=== PATIENT | female | born 1940 | race Caucasian/White ===

== ENCOUNTER 2019-11-19 12:37 | Emergency (ER) | payer OTHER ==
[~2019-11-19] VITALS: Ht 165.1 cm; Wt 113.4 kg
[2019-11-19 14:09] LABS: BILIRUBIN,URINE NEGATIVE (NEGATIVE); CLARITY,URINE CLEAR (CLEAR); COLOR,URINE YELLOW (YELLOW); KETONES,URINE NEGATIVE (NEGATIVE); LEUKOCYTE ESTERASE ,URINE TRACE (NEGATIVE); NITRITE,URINE NEGATIVE (NEGATIVE); PROTEIN,URINE DIPSTICK NEGATIVE (NEGATIVE); URINE UROBILINOGEN 0.2 mg/dL (0.2 - 1)
[2019-11-19 14:20] LABS: BACTERIA,URINE MODERATE /HPF; EPITHELIAL CELLS,URINE FEW /LPF; HYALINE CASTS 0-1 (0-1); WBC,URINE (MAN) 0-5 /HPF (0-5)
--- NOTE | 2019-11-19 14:36 | Diagnostic Imaging Report ---
TECHNIQUE: Computed tomography imaging of the LEFT HIP was performed WITHOUT injected contrast. HISTORY: Pain COMPARISON: None available. FINDINGS: No displaced left hip fracture. No lytic or blastic lesion. Mild degenerative arthrosis of the left hip with labral calcification. Atrophy of the left gluteal musculature. No fluid collections or soft tissue masses. Scattered diverticulosis without inflammatory change. IMPRESSION: No displaced fracture Signed by: Dr. Alberto Gray M.D. on 11/19/2019 2:32 PM
--- OUTSIDE RECORDS SUMMARY | 2019-11-19 14:52 | XMS REPORT | Clinical Summary ---
Author Author [facility] Address Unknown Phone Unavailable Care Team Providers Care Waste Duster Name Role Phone Duglas Bernal MD PCP [phone] Allergies No Known Allergies Medications End Date Status Medication Sig Dispensed Refills Start Date Active metoprolol (TOPROL-XL) 50 Take 50 mg by 0 MG 24 hr tablet mouth daily. Active amLODIPine (NORVASC) 5 MG Take 5 mg by 0 tablet mouth daily. Active CALCIUM CARBONATE/VITAMIN Take by mouth 0 D3 (CALCIUM 600 + D,3, daily . ORAL) Active FLUTICASONE PROPIONATE by Nasal 0 (FLUTICASONE NASL) route as needed . Active multivitamin per tablet Take 1 tablet 0 by mouth daily. Active buPROPion (WELLBUTRIN SR) Take 150 mg 0 150 MG 12 hr tablet by mouth 2 (two) times daily. Active celecoxib (CELEBREX) 100 Take 100 mg 0 MG capsule by mouth 2 (two) times daily . Active albuterol HFA (VENTOLIN Inhale 1 puff 0 HFA) 90 mcg/actuation by mouth via inhaler inhaler every 6 (six) hours as needed for Wheezing or Shortness of Breath. Active anastrozole (ARIMIDEX) 1 Take 1 mg by 0 mg tablet mouth daily. Active gabapentin (NEURONTIN) Take 400 mg 0 400 MG capsule by mouth 3 (three) times daily. Active lidocaine (LIDODERM) 5 % Place 1 patch 0 patch onto the skin daily Remove & Discard patch within 12 hours or as directed by MD . Active heparin injection 5,000 Inject 1 mL 1 mL 0 03 /01/201 units/mL for DVT (5,000 Units 7 prophylaxis/dialysis total) lock/IV bolus subcutaneousl y every 8 (eight) hours. Active polyethylene glycol Take 17 g by 0 (GLYCOLAX) 17 gram packet mouth daily 7 as needed (for constipation) . Active HYDROcodone-acetaminophen Take 1 tablet 30 tablet 0 (NORCO 5-325) 5-325 mg by mouth 7 per tablet every 6 (six) hours as needed for Pain (for moderate to severe pain). Max Daily Amount: 4 tablets Active Problems Problem Noted Date Chronic Open abdominal wall wound 04/06/2016 Acute on chronic low back pain with bilateral sciatic a 04/06/2016 History of breast cancer in female 04/06/2016 Paraparesis of both lower limbs 04/05/2016 INESSA (acute kidney injury) (HCC) resolved 04/05/2016 Essential hypertension 04/05/2016 Morbid obesity with BMI of 40.0-44.9, adult 04/05/19 17 Lymphedema of both lower extremities 04/05/2016 Peripheral neuropathy 04/05/2016 Depression 04/05/2016 Family History Medical History Relation Name Comments Diabetes Brother Heart disease Brother Diabetes Mother Heart disease Mother Relation Name Status Comments Brother Mother Social History Date Tobacco Use Types Packs/Day Years Used Never Smoker Drinks/Week oz/Week Comments Alcohol Use No Sex Assigned at Date Recorded Not on file Last Filed Vital Signs Not on file Plan of Treatment Not on file Results Not on fileafter 11/18/2018 Insurance Type Payer Benefit Subscriber ID Effective Phone Address Plan / Dates Group Maps Contracted TEXANPLUS TEXANPLUS [id number] 2013-P HMO ALL resent Advance Directives For more information, please contact: [phone] Date Inactivated Comments Code Status Date Activated 04/07/2016 8:38 PM Full Code 04/05/2016 7:39 PM This code status was determined by: Patient 01/16/2015 1:44 PM Full Code 01/14/2015 11:37 AM This code status was determined by: Patient 09/28/2014 3:43 PM Full Code 09/27/2014 9:24 AM This code status was determined by: Patient
--- OUTSIDE RECORDS SUMMARY | 2019-11-19 14:52 | XMS REPORT | Continuity of Care Document ---
Author Author [facility] Organization [facility] Address [address] [place] [address] Phone Unavailable Care Team Providers Care Dental Laboratory Technology Teacher Name Role Phone Dolores MEDINA, Juanpablo Ardon PCP [phone] Ahsan STROUD Attphys Unavailable SERGE CLARKE Attphys Unavailable Trey MCARTHUR Admphys Unavailable Problems Condition Name Condition Details Condition Category Status Onset Date Resolution Date Last Treatment Date Treating Clinician Comments Source Chronic Open abdominal wall wound Chronic Open abdominal wall wo und Disease Active 2016-04-06 00:00:00 [facility] Acute on chronic low back pain with bilateral sciatica Acute on chronic low back pain with bilateral sciatica Disease Active 2016-04-06 00:00:00 [facility] History of breast cancer in female History of breast cancer in f emale Disease Active 2016-04-06 00:00:00 [facility] Paraparesis of both lower limbs Paraparesis of both lower limbs Dis ease Active 2016-04-05 00:00:00 [facility] INESSA (acute kidney injury) (HCC) resolved INESSA (acute ki dney injury) (HCC) resolved Disease Active 2016-04-05 00:00:00 [facility] Essential hypertension Essential hypertension Disease Active 2016-04-05 00:00:00 [facility] Morbid obesity with BMI of 40.0-44.9, adult Morbid obe sity with BMI of 40.0- 44.9, adult Disease Active 2016-04-05 00:00:00 [facility] Lymphedema of both lower extremities Lymphedema of both lowe r extremities Disease Active 2016-04-05 00:00:00 [facility] Peripheral neuropathy Peripheral neuropathy Disease Active 201 08-08-26 00:00:00 [facility] Depression Depression Disease Active 2016-04-05 00:00:00 [facility] Allergies, Adverse Reactions, Alerts This patient has no known allergies or adverse reactions. Family History Family Member Diagnosis Comments Start Date Stop Date Source Natural brother Diabetes [facility] Natural brother Heart disease [facility] Natural mother Diabetes [facility] Natural mother Heart disease [facility] Social History Social Habit Start Date Stop Date Quantity Comments Source Sex Assigned At [facility] Alcohol intake 2016-04-05 00:00:00 2016-04-05 00:00:00 [facility] Sm[facility] Status Start Date Stop Date Source Never smoker [facility] Medications Ordered Medication Name Filled Medication Name Start Date Stop Da te Current Medication? Ordering Clinician Indication Dosage Frequency Signature (SIG) Comments Components Source metoprolol (TOPROL-XL) 50 MG 24 hr tablet 2016-04-07 18:38:31 Yes 50mg QD Take 50 mg by mouth daily. [facility] multivitamin per tablet 2016-04-07 18:38:31 Yes 1{tbl} QD Take 1 tablet by mouth daily. [facility] gabapentin (NEURONTIN) 400 MG capsule 2016-04-07 18:38:31 Yes 400mg [id number] Take 400 mg by mouth 3 (three) times daily. [facility] lidocaine (LIDODERM) 5 % patch 2016-04-07 18:38:31 Yes 1{patch} Q24H Place 1 patch onto the skin daily Remove & Discard patch within 12 hours or as directed by . [facility] amLODIPine (NORVASC) 5 MG tablet 2016-04-07 18:38:30 Yes 5mg QD Take 5 mg by mouth daily. [facility] CALCIUM CARBONATE/VITAMIN D3 (CALCIUM 600 + D,3, ORAL) 2016-04-07 18:38:30 Yes QD Take by mouth daily . I [facility] FLUTICASONE PROPIONATE (FLUTICASONE NASL) 2016-04-07 18:38:30 Yes by Nasal route as needed . [facility] buPROPion (WELLBUTRIN SR) 150 MG 12 hr tablet 2016-04-07 18:38:3 0 Yes 150mg Q.5D Take 150 mg by mouth 2 (two) times daily. [facility] celecoxib (CELEBREX) 100 MG capsule 2016-04-07 18:38:30 Yes 100mg Q.5D Take 100 mg by mouth 2 (two) times daily . [facility] albuterol HFA (VENTOLIN HFA) 90 mcg/actuation inhaler 2016-04-07 18:38:30 Yes 1{puff} Inhale 1 puff b y mouth via inhaler every 6 (six) hours as needed for Wheezing or Shortness of Breath. [facility] anastrozole (ARIMIDEX) 1 mg tablet 2016-04-07 18:38:30 Yes 1mg QD Take 1 mg by mouth daily. [facility] heparin injection 5,000 units/mL for DVT prophylaxis/dialysi s lock/IV bolus 2016-04-07 00:00:00 Yes 5000U Inject 1 mL (5,000 Units total) subcutaneously every 8 (eight) hours. I [facility] polyethylene glycol (GLYCOLAX) 17 gram packet 2016-04-07 00:00:0 0 Yes 17g Take 17 g by mouth daily as needed (for constipation). [facility] HYDROcodone-acetaminophen (NORCO 5-325) 5-325 mg per tablet 2016-04-07 00:00:00 Yes 1{tbl} Take 1 tab let by mouth every 6 (six) hours as needed for Pain (for moderate to severe pain). Max Daily Amount: [address] [facility] Procedures This patient has no known procedures. Results Test Description Test Time Test Comments Results Result Comments Source CT HIP LEFT WO 2019-11-19 14:28:00 [facility] [address] [address] Patient Name: SAUL XIONG MR #: [id number] : 1940 Age/Sex: 79/F Req #: [id number] Adm Physician: Ordered by: ASIM STROUD DO Report #: [id number] Location: ER Room/Bed: Procedure: [id number] CT/CT HIP LEFT WO Exam Date: 11/19/19 Exam Time: 1400 REPORT STATUS: Signed TECHNIQUE: Computed tomography imaging of the LEFT HIP was performed WITHOUT injected contrast. HISTORY: Pain COMPARISON: None available. FINDINGS: No displaced left hip fracture. No lytic or blastic lesion. Mild degenerative arthrosis of the left hip with labral calcification. Atrophy of the left gluteal musculature. No fluid collections or soft tissue masses. Scattered diverticulosis without inflammatory change. IMPRESSION: No displaced fracture Signed by: Dr. Renuka Santos M.D. on 11/19/2019 2:32 PM Dictated By: RENUKA SANTOS MD 143 Transcribed By: TIAGO on 11/19/19 143 COPY TO: ASIM STROUD DO POCT-GLUCOSE METER 2016-04-06 18:03:00 Test Item POC-GLUCOSE METER (BEAKER) (test code = 1538) 115 mg/dL 70-110 H TESTED AT [address] [address] POCT-GLUCOSE [id number] 12:27:00* Test Item Value Reference Range Interpretation Comments POC-GLUCOSE METER (BEAKER) (test code = 1538) 110 mg/dL 70-110 TESTED AT [address] [address] POCT-GLUCOSE [id number] 07:57:00* Test Item Value Reference Range Interpretation Comments POC-GLUCOSE METER (BEAKER) (test code = 1538) 91 mg/dL 70-110 TESTED AT [facility] [address] [facility] [address] BASIC METABOLIC [id number] 07:42:00* Test Item Value Reference Range Interpretation Comments SODIUM (BEAKER) (test code = 381) 139 meq/L 136-145 POTASSIUM (BEAKER) (test code = 379) 4.3 meq/L 3.5-5.1 Specimen slightly hemolyzed CHLORIDE (BEAKER) (test code = 382) 109 meq/L 98-107 H CO2 (BEAKER) (test code = 355) 21 meq/L 22-29 L BLOOD UREA NITROGEN (BEAKER) (test code = 354) 27 mg/dL 7-21 H CREATININE (BEAKER) (test code = 358) 1.02 mg/dL 0.57-1.25 Specimen slightly hemolyzed GLUCOSE RANDOM (BEAKER) (test code = 652) 93 mg/dL 70-105 CALCIUM (BEAKER) (test code = 697) 9.0 mg/dL 8.4-10.2 EGFR (BEAKER) (test code = 1092) 53 mL/min/1.73 sq m ESTIMATED GFR IS NOT ACCURATE CREATININE CLEARANCE IN PREDICTING GLOMERULAR FILTRATION RATE. ESTIMATED GFR IS NOT APPLICABLE FOR DIALYSIS PATIENTS. TSH/FREE T4 IF [id number] 18:15:00* Test Item Value Reference Range Interpretation Comments THYROID STIMULATING HORMONE (BEAKER) (test code = 772) 1.71 uIU/mL 0.35-4.94 BASIC METABOLIC [id number] 18:01:00* Test Item Value Reference Range Interpretation Comments SODIUM (BEAKER) (test code = 381) 139 meq/L 136-145 POTASSIUM (BEAKER) (test code = 379) 4.9 meq/L 3.5-5.1 Specimen slightly hemolyzed CHLORIDE (BEAKER) (test code = 382) 106 meq/L 98-107 CO2 (BEAKER) (test code = 355) 23 meq/L 22-29 BLOOD UREA NITROGEN (BEAKER) (test code = 354) 24 mg/dL 7-21 H CREATININE (BEAKER) (test code = 358) 1.42 mg/dL 0.57-1.25 H Specimen slightly hemolyzed GLUCOSE RANDOM (BEAKER) (test code = 652) 114 mg/dL 70-105 H CALCIUM (BEAKER) (test code = 697) 9.5 mg/dL 8.4-10.2 EGFR (BEAKER) (test code = 1092) 36 mL/min/1.73 sq m ESTIMATED GFR IS NOT ACCURATE CREATININE CLEARANCE IN PREDICTING GLOMERULAR FILTRATION RATE. ESTIMATED GFR IS NOT APPLICABLE FOR DIALYSIS PATIENTS. TROPONIN [id number] 16:58:00* Test Item Value Reference Range Interpretation Comments TROPONIN I (BEAKER) (test code = 397) 0.01 ng/mL 0.00-0.03 Effective 12/25/2013: Reference Range ChangeNew: 0.00-0.03 Previous 0.00-0.15T roponin I (TnI) levels must be interpreted in the context of the presenting symp toms and the clinical findings. Elevated TnI levels indicate myocardial damage, but are not specific for ischemic heart disease. Elevated TnI levels are seen in patients with other cardiac conditions (including myocarditis and congestive he art failure), and slight TnI elevations occur in patients with other conditions, including sepsis, renal failure, acidosis, acute neurological disease, and pers istent tachyarrhythmia.CBC W/PLT COUNT & AUTO [id number] 16:31:00* Test Item Value Reference Range Interpretation Comments WHITE BLOOD CELL COUNT (BEAKER) (test code = 775) 7.4 K/ L 4.0- 10.0 RED BLOOD CELL COUNT (BEAKER) (test code = 761) 4.40 M/ L 4.00-5 .00 HEMOGLOBIN (BEAKER) (test code = 410) 14.3 GM/DL 12.0-15.0 HEMATOCRIT (BEAKER) (test code = 411) 42.9 % 36.0-45.0 MEAN CORPUSCULAR VOLUME (BEAKER) (test code = 753) 97.5 fL 82. 0-99.0 MEAN CORPUSCULAR HEMOGLOBIN (BEAKER) (test code = 751) 32.4 pg 27.0-33.0 MEAN CORPUSCULAR HEMOGLOBIN CONC (BEAKER) (test code = 752) 33.3 GM/DL 32.0-36.0 RED CELL DISTRIBUTION WIDTH (BEAKER) (test code = 412) 13.2 % 10.3-14.2 PLATELET COUNT (BEAKER) (test code = 756) 203 K/CU MM 150-430 MEAN PLATELET VOLUME (BEAKER) (test code = 754) 8.5 fL 6.5-10 .5 NUCLEATED RED BLOOD CELLS (BEAKER) (test code = 413) 0 /100 WBC 0 -0 NEUTROPHILS RELATIVE PERCENT (BEAKER) (test code = 429) 78 % LYMPHOCYTES RELATIVE PERCENT (BEAKER) (test code = 430) 10 % MONOCYTES RELATIVE PERCENT (BEAKER) (test code = 431) 10 % EOSINOPHILS RELATIVE PERCENT (BEAKER) (test code = 432) 1 % BASOPHILS RELATIVE PERCENT (BEAKER) (test code = 437) 1 % NEUTROPHILS ABSOLUTE COUNT (BEAKER) (test code = 670) 5.78 K/ L 1.80-8.00 LYMPHOCYTES ABSOLUTE COUNT (BEAKER) (test code = 414) 0.74 K/ L 1.48-4.50 L MONOCYTES ABSOLUTE COUNT (BEAKER) (test code = 415) 0.72 K/ L 0. 00-1.30 EOSINOPHILS ABSOLUTE COUNT (BEAKER) (test code = 416) 0.10 K/ L 0.00-0.50 BASOPHILS ABSOLUTE COUNT (BEAKER) (test code = 417) 0.08 K/ L 0. 00-0.20 0.00
--- NOTE | 2019-11-19 15:26 | Diagnostic Imaging Report ---
EXAMINATION: CT of the lumbar spine HISTORY: Low back pain for the last few days COMPARISON: None available TECHNIQUE: Multidetector helical axial images were obtained about contrast from L1 to S1. Dose modulation, iterative reconstruction, and/or weight based adjustment of the mA/kV was utilized to reduce the radiation dose to as low as reasonably achievable. FINDINGS: Alignment: Grade 2 spondylolisthesis of L4 on L5 due to advanced facet arthrosis. Normal lumbar lordosis otherwise. Mild S-shaped scoliosis with dominant dextroscoliosis centered at L3-L4. Vertebral bodies: No acute fractures. Chronic endplate degenerative changes from L2 to S1. Interbody fusion at L5-S1. Paraspinal muscles: Moderate atrophy of the paraspinal muscles. Lower thoracic spine: Mild degenerative changes from T9-T10, T10-T11 and T11-T12 without significant stenoses. Intervertebral disks: L1-L2: Normal L2-L3: Decreased disc height, endplate osteophytes and facet arthrosis. Moderate right and mild left foraminal stenoses. L3-L4: Decreased disc height, similar to disc bulge, vacuum phenomena, endplate osteophytes, ligamentum flavum thickening and facet arthrosis. Severe spinal canal and moderately severe foraminal stenosis. L4-L5: Decreased disc height, symmetric disc bulge, vacuum phenomena, endplate osteophytes, ligamenta flava thickening and severe facet arthrosis. Severe spinal canal and moderate foraminal stenoses mainly on the right side. L5-S1: Solid interbody and posterior fusion. No stenoses. IMPRESSION: 1. No acute displaced fractures. 2. Grade 2 degenerative spondylolisthesis of L4 on L5 due to advanced facet arthrosis. 3. Severe degenerative spinal canal stenosis at L3-L4 and L4-L5. 4. Moderate to severe degenerative foraminal stenosis from L3-L4 to L4-L5 as the tail above. 5. Solid interbody and posterior fusion at L5-S1. Signed by: Dr. Juana Herr M.D. on 11/19/2019 3:23 PM
[2019-11-19] MEDS ORDERED: HYDROCODONE/APAP 7.5MG-325MG 1 EA TAB PO PRN (15:30)
[2019-11-19] MEDS ORDERED: DIAZEPAM 2 MG TAB PO ONE (15:30)
[2019-11-19] MEDS ORDERED: METHYLPREDNISOLONE SOD SUCC 125 MG/2ML VIAL IV ONE (16:00)
[2019-11-19] MEDS ORDERED: ULTRAM50 MG PO (16:16)
--- NOTE | 2019-11-25 09:25 | Emergency Department Note ---
History of Present Illnes History of Present Illness Chief Complaint: Back Pain History of Present Illness This is a 79 year old female arrived to the ED with atraumatic lower back pain patient states pain is worse when bending forward. Patient denies any dysuria hematuria no fever no chills. Patient denies any numbness to her extremities. . . .PATIENT IN FROM HOME WITH COMPLAINTS OF LEFT LOWER BACK AND LEG PAIN X 4 DAYS; DENIES ANY FALL OR INJURY; PATIENT STATES IT STARTED APPROX 4 DAYS AGO AFTER DOING LAUNDRY AND OTHER ACTIVITIES. PATIENT RATES PAIN 11/16 Historian: Patient, Hand Clipper/EMS Arrival Mode: [place] Onset (how long ago): day(s) Severity: mild Onset quality: gradual Duration (how long): day(s) Timing of current episode: constant Progression: waxing and waning Context: Denies recent illness, Denies recent surgery, Denies recent immobilization, Denies trauma/injury Relieving factors: none Exacerbating factors: none Past Medical/Family History Physician Review I have reviewed the patient's past medical and family history. Any updates have been documented here. Past Medical History Recent Fever: No Clinical Suspicion of Infectio: No New/Unexplained Change in Ment: No Past Medical History: Hypertension, Cancer, Hyperlipedemia Other Medical History: BILATERAL BREAST CANCER Past Surgical History: Knee Replacement, Mastectomy Other Surgery: LUMBAR FUSION Social History Smoking Cessation: Never Smoker Counseling Performed: No Alcohol Use: None Any Illegal Drug Use: No Physically hurt or threatened: No Other Any Pre-Existing Lines (PICC,: No Review of Systems Review of Systems Constitutional: Reports no symptoms EENTM: Reports no symptoms Cardiovascular: Reports no symptoms Respiratory: Reports no symptoms Gastrointestinal: Reports no symptoms Genitourinary: Reports no symptoms Musculoskeletal: Reports as per HPI, Reports back pain Integumentary: Reports no symptoms Neurological: Reports no symptoms Psychological: Reports no symptoms Endocrine: Reports no symptoms Hematological/Lymphatic: Reports no symptoms Physical Exam Related Data Allergies: Coded Allergies: No Known Allergies (Unverified , 11/19/19) Triage Vital Signs Vital Signs Date Time Temp Pulse Resp B/P (MAP) Pulse Ox O2 Delivery O2 Flow Rate FiO2 11/19/19 12:57 98.6 58 18 153/62 96 Room Air Vital signs reviewed: Yes Physical Exam CONSTITUTIONAL Constitutional: Present well-developed, Present well-nourished HENT HENT: Present normocephalic, Present atraumatic, Present oropharynx clear/moist, Present nose normal HENT L/R: Present left ext ear normal, Present right ext ear normal EYES Eyes: Reports PERRL, Reports conjunctivae normal NECK Neck: Present ROM normal PULMONARY Pulmonary: Present effort normal, Present breath sounds normal CARDIOVASCULAR Cardiovascular: Present regular rhythm, Present heart sounds normal, Present capillary refill normal, Present normal rate GASTROINTESTINAL Abdominal: Present soft, Present nontender, Present bowel sounds normal GENITOURINARY Genitourinary: Present exam deferred SKIN Skin: Present warm, Present dry MUSCULOSKELETAL Musculoskeletal: Present tenderness NEUROLOGICAL Neurological: Present alert, Present oriented x 3, Present no gross motor or sensory deficits PSYCHOLOGICAL Psychological: Present mood/affect normal, Present judgement normal Results Imaging Imaging results reviewed: Yes Impressions IMPRESSION: 1. No acute displaced fractures. 2. Grade 2 degenerative spondylolisthesis of L4 on L5 due to advanced facet arthrosis. 3. Severe degenerative spinal canal stenosis at L3-L4 and L4-L5. 4. Moderate to severe degenerative foraminal stenosis from L3-L4 to L4-L5 as the tail above. 5. Solid interbody and posterior fusion at L5-S1. Assessment & Plan Medical Decision Making MDM 79-year-old female arrived to the ED with complaints of atraumatic back pain. Patient noted relief with Valium, [place] and ketorolac. Patient's imaging shows no acute neurological process and patient stable for discharge home outpatient neurosurgical follow-up given. I estimate there is LOW risk for ABDOMINAL AORTIC ANEURYSM, CAUDA EQUINA SYNDROME, EPIDURAL MASS LESION, SPINAL STENOSIS, OR HERNIATED DISK CAUSING SEVERE STENOSIS, thus I consider the discharge disposition reasonable. We have discussed the diagnosis and risks, and we agree with discharging home to follow- up with their primary doctor. We also discussed returning to the Emergency Department immediately if new or worsening symptoms occur. We have discussed the symptoms which are most concerning (e.g., saddle anesthesia, urinary or bowel incontinence or retention, changing or worsening pain) that necessitate immediate return. Assessment & Plan Final Impression: (1) Back pain Depart Disposition: HOME, SELF-CARE Last Vital Signs Date Time Temp Pulse Resp B/P (MAP) Pulse Ox O2 Delivery O2 Flow Rate FiO2 11/19/19 12:57 98.6 58 18 153/62 96 Room Air Home Meds Active Scripts Tramadol Hcl (ULTRAM) 50 Mg Tablet, 50 MG PO Q6HR PRN for MUSCLE SPASMS, #14 TAB Prov:ASIM STROUD DO 11/19/19 ASIM STROUD DO Nov 25, 2019 09:25
== END 2019-11-19 17:11 | disposition home or self-care (01) ==
LOC: ER 14:50
DX: M54.5 Low back pain (principal); I10 Essential (primary) hypertension; E78.5 Hyperlipidemia, unspecified; Z85.3 Personal history of malignant neoplasm of breast
CPT/HCPCS: 72131; 73700; 81001; 99284; J2930

== ENCOUNTER 2019-12-01 14:18 | Inpatient (IN) | payer OTHER ==
[~2019-12-01] VITALS: Ht 165.1 cm; Wt 113.4 kg
[~2019-12-01 14:18] MED LIST: ULTRAM50 MG PO
--- NOTE | 2019-12-01 14:59 | Diagnostic Imaging Report ---
CT BRAIN WO HISTORY: Altered mental status COMPARISON: None. Technique: Noncontrast axial scans were obtained from skull base to the vertex. Coronal and sagittal reconstructions obtained from the axial data. One or more of the following dose reduction techniques were used: Automated exposure control, adjustment of the mA and/or kV according to patient size, and/or utilization of iterative reconstruction technique. DISCUSSION: Scalp/Skull: Unremarkable. Brain sulci: Mildly prominent. Ventricles: Compensatory dilatation. Extra-axial spaces: No masses or fluid collections. Carotid and vertebral artery calcifications are present. Parenchyma: Mild bilateral deep white matter hypodensity is likely chronic microvascular ischemic change. Otherwise, no masses, hemorrhage, or large vascular territory acute infarct. Dural sinuses: No abnormal densities. Sellar/Suprasellar region: Intact. Skull base: Intact. Incidental findings: None. IMPRESSION: 1. No acute intracranial abnormalities. 2. Mild supratentorial chronic microvascular ischemic change. Mild generalized cerebral volume loss. Signed by: Dr. Abran Jones M.D. on 12/01/2019 2:56 PM
[2019-12-01 15:25] LABS: BASOPHILS % 0.2 % (0.0-1.0); HEMATOCRIT 41.8 % (34.2-44.1); HEMOGLOBIN 13.1 g/dL (12.0-16.0); LYMPHOCYTES # (AUTO) 0.4 (1.0-3.2); LYMPHOCYTES % 6.5 % (18.0-39.1); MEAN CORPUSCULAR HGB CONC 31.3 g/dL (31-35); MEAN CORPUSCULAR VOLUME 99.1 fL (81-99); MONOCYTES # (AUTO) 0.2 (0.2-0.8); MONOCYTES % 3.2 % (4.4-11.3); NEUTROPHILS # (AUTO) 5.8 (2.1-6.9); NEUTROPHILS % 89.6 % (38.7-80.0); PLATELET COUNT 246 x10e3/uL (140-360); RED BLOOD COUNT 4.22 x10e6/uL (3.6-5.1); RED CELL DISTRIBUTION WIDTH 14.3 % (11.7-14.4)
[2019-12-01 15:30] LABS: INR 0.96; PROTHROMBIN TIME 13.3 seconds (11.9-14.5)
[2019-12-01 15:31] LABS: PARTIAL THROMBOPLASTIN TIME 26.9 seconds (23.8-35.5)
[2019-12-01 15:34] LABS: BILIRUBIN,URINE SMALL (NEGATIVE); CLARITY,URINE HAZY (CLEAR); COLOR,URINE YELLOW (YELLOW); KETONES,URINE 2+ (NEGATIVE); LEUKOCYTE ESTERASE ,URINE NEGATIVE (NEGATIVE); NITRITE,URINE NEGATIVE (NEGATIVE); PROTEIN,URINE DIPSTICK NEGATIVE (NEGATIVE); URINE UROBILINOGEN 0.2 mg/dL (0.2 - 1)
[2019-12-01 15:38] LABS: AMPHETAMINES SCREEN,URINE NEGATIVE (NEGATIVE); PHENCYCLIDINE SCREEN,URINE NEGATIVE (NEGATIVE)
[2019-12-01 15:39] LABS: BENZODIAZEPINES SCREEN,URINE POSITIVE (NEGATIVE); SALICYLATE < 5.0 mg/dL (0-30)
[2019-12-01 15:40] LABS: ALBUMIN 3.9 g/dL (3.5-5.0); ALBUMIN/GLOBULIN RATIO 1.2 (0.8-2.0); ANION GAP 17.7 mmol/L (8-16); BACTERIA,URINE FEW /HPF; CALCIUM 9.7 mg/dL (8.4-10.2); CREATININE, SERUM 1.41 mg/dL (0.57-1.11); EPITHELIAL CELLS,URINE FEW /LPF; POTASSIUM 4.7 mmol/L (3.5-5.1); RBC,URINE 0-5 /HPF (0-5)
[2019-12-01 15:51] LABS: B-TYPE NATRIURETIC PEPTIDE2 24.5 pg/mL (0-100)
[2019-12-01 16:00] LABS: CREATINE KINASE MB 1.8 ng/mL (0-5.0); THYROID STIMULATING HORMONE 0.629 uIU/mL (0.350-4.940)
[2019-12-01] MEDS ORDERED: SODIUM CHLORIDE 0.9% 500ML 500 ML IV ONE (16:15)
--- NOTE | 2019-12-01 16:17 | Diagnostic Imaging Report ---
EXAMINATION: CHEST SINGLE (PORTABLE) INDICATION: Altered mental status. COMPARISON: None FINDINGS: TUBES and LINES: None. LUNGS: Low lung volumes and bronchovascular crowding. There is hazy opacification the bilateral lung bases, left more to right. PLEURA: No pleural effusion or pneumothorax. HEART AND MEDIASTINUM: The cardiomediastinal silhouette is unremarkable. BONES AND SOFT TISSUES: No acute osseous lesion. Soft tissues are unremarkable. UPPER ABDOMEN: No free air under the diaphragm. IMPRESSION: Hazy opacification the bilateral lung bases which may represent atelectasis and/or aspiration given history of altered mental status. Signed by: Layo Raymond MD on 12/01/2019 4:14 PM
[2019-12-01] MEDS ORDERED: ONDANSETRON HCL INJ 2MG/ML 2ML 2 MG/ML VIAL IV PRN (17:00)
--- NOTE | 2019-12-01 17:48 | Emergency Department Note ---
History of Present Illnes History of Present Illness Chief Complaint: Neurological History of Present Illness This is a 79 year old female PATIENT IN FROM HOME; PER DAUGHTER, PATIENT LAST SEEN NORMAL ABOUT 0900, THEN SHE TOOK A NAP AND WHEN PATIENT WOKE UP AT 1300, SHE WAS STARING OFF INTO SPACE AND NOT SPEAKING/ACTING LIKE NORMAL. PATIENT RECENTLY GOT A NEW PRESCRIPTION FOR BACLOFEN TUESDAY. PATIENT ABLE TO FOLLOW COMMANDS, APPEARS IN NO DISTRESS, DENIES PAIN. Historian: Patient, Family Member Arrival Mode: Car Engineering Associate Required: No Onset (how long ago): hour(s) (6) Location: CONFUSION Radiation: Reports non-radiation Severity: moderate Onset quality: unable to specify Duration (how long): hour(s) (6) Timing of current episode: constant Progression: unchanged Chronicity: new Context: Denies recent illness Relieving factors: none Exacerbating factors: none Associated symptoms: Reports confusion; Denies cough, Denies fever/chills Past Medical/Family History Physician Review I have reviewed the patient's past medical and family history. Any updates have been documented here. Past Medical History Recent Fever: No Clinical Suspicion of Infectio: No New/Unexplained Change in Ment: No Past Medical History: Hypertension, Cancer, Hyperlipedemia Other Medical History: BILATERAL BREAST CANCER Past Surgical History: Knee Replacement, Mastectomy Other Surgery: LUMBAR FUSION Social History Smoking Cessation: Never Smoker Counseling Performed: No Alcohol Use: None Any Illegal Drug Use: No TB Exposure/Symptoms: No Physically hurt or threatened: No Family History Family history of heart diseas: No Other Any Pre-Existing Lines (PICC,: No Review of Systems ROS Narrative Unable to obtain ROS: altered mental status, other (ROS FROM DAUGHTER) Review of Systems Constitutional: Reports no symptoms EENTM: Reports no symptoms Cardiovascular: Reports no symptoms Respiratory: Reports no symptoms Gastrointestinal: Reports no symptoms Genitourinary: Reports no symptoms Musculoskeletal: Reports no symptoms Integumentary: Reports no symptoms Neurological: Reports as per HPI, Reports other (AMS, DIFFICULTY WITH SPEECH - ALMOST NONE BUT MUMBLING WHEN SHE DOES ATTEMPT SPEECH) Psychological: Reports no symptoms Endocrine: Reports no symptoms Hematological/Lymphatic: Reports no symptoms Physical Exam Related Data Allergies: Coded Allergies: No Known Allergies (Unverified , 12/01/19) Triage Vital Signs Vital Signs Date Time Temp Pulse Resp B/P (MAP) Pulse Ox O2 Delivery O2 Flow Rate FiO2 12/01/19 14:21 97.8 76 18 139/88 97 Room Air Vital signs reviewed: Yes Physical Exam CONSTITUTIONAL Constitutional: Present well-developed, Present well-nourished, Present morbidly obese HENT HENT: Present normocephalic, Present atraumatic, Present mucosae dry, Present nose normal HENT L/R: Present left ext ear normal, Present right ext ear normal EYES Eyes: Reports PERRL, Reports conjunctivae normal NECK Neck: Present ROM normal, Present supple; Absent carotid bruit PULMONARY Pulmonary: Present rhonchi (POOR EFFORT BUT MILD BIBASILAR RHONCHI) CARDIOVASCULAR Cardiovascular: Present regular rhythm, Present heart sounds normal, Present capillary refill normal, Present normal rate GASTROINTESTINAL Abdominal: Present soft, Present nontender, Present bowel sounds normal GENITOURINARY Genitourinary: Present exam deferred SKIN Skin: Present warm, Present dry MUSCULOSKELETAL Musculoskeletal: Present ROM normal NEUROLOGICAL Neurological: Present alert, Present DTRs normal, Present no gross motor or sensory deficits, Present other (MINIMAL SPEECH, MUMBLING WHEN SHE ATTEMPTS, FOLLOWS ALL COMMANDS); Absent cranial nerve deficit, Absent sensory deficit PSYCHOLOGICAL Psychological: Present mood/affect normal, Present judgement normal Results Laboratory Result Diagram: 12/01/19 1500 12/01/19 1500 Laboratory Laboratory Tests Test 12/01/19 15:08 12/01/19 15:00 White Blood Count 6.51 x10e3/uL (4.8-10.8) Red Blood Count 4.22 x10e6/uL (3.6-5.1) Hemoglobin 13.1 g/dL (12.0-16.0) Hematocrit 41.8 % (34.2-44.1) Mean Corpuscular Volume 99.1 fL (81-99) Mean Corpuscular Hemoglobin 31.0 pg (28-32) Mean Corpuscular Hemoglobin Concent 31.3 g/dL (31-35) Red Cell Distribution Width 14.3 % (11.7-14.4) Platelet Count 246 x10e3/uL (140-360) Neutrophils (%) (Auto) 89.6 % (38.7-80.0) Lymphocytes (%) (Auto) 6.5 % (18.0-39.1) Monocytes (%) (Auto) 3.2 % (4.4-11.3) Eosinophils (%) (Auto) 0.0 % (0.0-6.0) Basophils (%) (Auto) 0.2 % (0.0-1.0) Neutrophils # (Auto) 5.8 (2.1-6.9) Lymphocytes # (Auto) 0.4 (1.0-3.2) Monocytes # (Auto) 0.2 (0.2-0.8) Eosinophils # (Auto) 0.0 (0.0-0.4) Basophils # (Auto) 0.0 (0.0-0.1) Absolute Immature Granulocyte (auto 0.03 x10e3/uL (0-0.1) Prothrombin Time 13.3 seconds (11.9-14.5) Prothromb Time International Ratio 0.96 Activated Partial Thromboplast Time 26.9 seconds (23.8-35.5) Urine Color Yellow (YELLOW) Urine Clarity Hazy (CLEAR) Urine pH 5.5 (5 - 7) Urine Specific [place] 1.025 (1.010-1.025) Urine Protein Negative (NEGATIVE) Urine Glucose (UA) Negative (NEGATIVE) Urine Ketones 2+ (NEGATIVE) Urine Blood Negative (NEGATIVE) Urine Nitrite Negative (NEGATIVE) Urine Bilirubin Small (NEGATIVE) Urine Urobilinogen 0.2 mg/dL (0.2 - 1) Urine Leukocyte Esterase Negative (NEGATIVE) Urine RBC 0-5 /HPF (0-5) Urine WBC 6-10 /HPF (0-5) Urine Epithelial Cells Few /LPF (NONE) Urine Bacteria Few /HPF (NONE) Sodium Level 143 mmol/L (136-145) Potassium Level 4.7 mmol/L (3.5-5.1) Chloride Level 107 mmol/L (98-107) Carbon Dioxide Level 23 mmol/L (22-29) Anion Gap 17.7 mmol/L (8-16) Blood Urea Nitrogen 19 mg/dL (7-26) Creatinine 1.41 mg/dL (0.57-1.11) Estimat Glomerular Filtration Rate 36 ML/MIN (60-) BUN/Creatinine Ratio 13 (6-25) Glucose Level 116 mg/dL (74-118) Lactic Acid Level 1.5 mmol/L (0.5-2.0) Calcium Level 9.7 mg/dL (8.4-10.2) Magnesium Level 2.0 MG/DL (1.3-2.1) Total Bilirubin 0.3 mg/dL (0.2-1.2) Aspartate Amino Transf (AST/SGOT) 18 IU/L (5-34) Alanine Aminotransferase (ALT/SGPT) 20 IU/L (0-55) Alkaline Phosphatase 98 IU/L (40-150) Ammonia 54 UG/DL (31-123) Creatine Kinase 58 IU/L (29-168) Creatine Kinase MB 1.80 ng/mL (0-5.0) Troponin I 0.016 ng/mL (0-0.300) B-Type Natriuretic Peptide 24.5 pg/mL (0-100) Total Protein 7.1 g/dL (6.5-8.1) Albumin 3.9 g/dL (3.5-5.0) Globulin 3.2 g/dL (2.3-3.5) Albumin/Globulin Ratio 1.2 (0.8-2.0) Thyroid Stimulating Hormone (TSH) 0.629 uIU/mL (0.350-4.940) Salicylates Level < 5.0 mg/dL (0-30) Urine Opiates Screen Positive (NEGATIVE) Urine Methadone Screen Negative (NEGATIVE) Acetaminophen Level 4.0 ug/mL (10-30) Urine Barbiturates Screen Negative (NEGATIVE) Urine Phencyclidine Screen Negative (NEGATIVE) Urine Amphetamines Screen Negative (NEGATIVE) Urine Methamphetamines Screen Negative (NEGATIVE) Urine Benzodiazepines Screen Positive (NEGATIVE) Urine Cocaine Screen Negative (NEGATIVE) Urine Cannabinoids Screen Negative (NEGATIVE) Ethyl Alcohol Level < 10.0 mg/dL (0.0-10.0) Lab results reviewed: Yes Imaging Imaging results reviewed: Yes Impressions CT BRAIN WO HISTORY: Altered mental status COMPARISON: None. Technique: Noncontrast axial scans were obtained from skull base to the vertex. Coronal and sagittal reconstructions obtained from the axial data. One or more of the following dose reduction techniques were used: Automated exposure control, adjustment of the mA and/or kV according to patient size, and/or utilization of iterative reconstruction technique. DISCUSSION: Scalp/Skull: Unremarkable. Brain sulci: Mildly prominent. Ventricles: Compensatory dilatation. Extra-axial spaces: No masses or fluid collections. Carotid and vertebral artery calcifications are present. Parenchyma: Mild bilateral deep white matter hypodensity is likely chronic microvascular ischemic change. Otherwise, no masses, hemorrhage, or large vascular territory acute infarct. Dural sinuses: No abnormal densities. Sellar/Suprasellar region: Intact. Skull base: Intact. Incidental findings: None. IMPRESSION: 1. No acute intracranial abnormalities. 2. Mild supratentorial chronic microvascular ischemic change. Mild generalized cerebral volume loss. Signed by: Dr. Abran Jones M.D. on 12/01/2019 2:56 PM EXAMINATION: CHEST SINGLE (PORTABLE) INDICATION: Altered mental status. COMPARISON: None FINDINGS: TUBES and LINES: None. LUNGS: Low lung volumes and bronchovascular crowding. There is hazy opacification the bilateral lung bases, left more to right. PLEURA: No pleural effusion or pneumothorax. HEART AND MEDIASTINUM: The cardiomediastinal silhouette is unremarkable. BONES AND SOFT TISSUES: No acute osseous lesion. Soft tissues are unremarkable. UPPER ABDOMEN: No free air under the diaphragm. IMPRESSION: Hazy opacification the bilateral lung bases which may represent atelectasis and/or aspiration given history of altered mental status. Signed by: Layo Raymond MD on 12/01/2019 4:14 PM Procedures 12 Lead ECG Interpretation ECG Interpretation : ECG: ECG 1 Engineering Associate: Interpreted by ED physician Date: Dec 01, 2019 Time: 14:49 Rhythm: sinus rhythm Rate: normal BPM: 70 QRS axis: left ST segments normal: Yes T waves normal: Yes Other findings: LVH Clinical Impression: abnormal ECG Assessment & Plan Medical Decision Making MDM AMS, ON A LOT OF MEDS - CHECK CT BRAIN, CBC, CHEM, UA, CX'S, LACTIC, NH3, CXR - EVAL CEREBRAL BLEED, CVA, ELECTROLYTE ABNL, APPEARS DEHYRATED ON EXAM, SEPSIS, PNEUMONIA, UTI Reassessment Reassessment ADMIT TO DR SOLOMON (TOMMY PT) Assessment & Plan Final Impression: (1) Pneumonia (2) AMS (altered mental status) (3) Renal insufficiency (4) Dehydration Depart Disposition: ADMITTED Last Vital Signs Date Time Temp Pulse Resp B/P (MAP) Pulse Ox O2 Delivery O2 Flow Rate FiO2 12/01/19 17:18 77 20 98 12/01/19 14:21 97.8 139/88 Room Air Home Meds Active Scripts Tramadol Hcl (ULTRAM) 50 Mg Tablet, 50 MG PO Q6HR PRN for MUSCLE SPASMS, #14 TAB Prov:ASIM STROUD DO 11/19/19 Medications in the ED Sodium Chloride 500 ml @ 0 mls/hr Q0M ONCE IV Last administered on 12/01/19at 16:58; Admin Dose 500 MLS/HR; Start 12/01/19 at 16:15; Stop 12/01/19 at 16:16; Status DC Ondansetron HCl 4 mg Q4H PRN IV NAUSEA AND VOMITING; Start 12/01/19 at 17:00; Stop 12/31/19 at 16:59 Sodium Chloride 1,000 ml @ 100 mls/hr Q10H IV ; Start 12/01/19 at 17:00; Stop 12/31/19 at 16:59 Acetaminophen/ Hydrocodone Bitart 1 ea Q6H PRN PO MODERATE PAIN (4-6); Start 12/01/19 at 17:00; Stop 12/08/19 at 16:59 Alprazolam 0.5 mg Q8H PRN PO ANXIETY; Start 12/01/19 at 17:00; Stop 12/08/19 at 16:59 LU QUEEN MD Dec 01, 2019 17:48
--- NOTE | 2019-12-01 18:00 | NUR ---
Patient arrived to the floor from the ER via stretcher. She is awake alert to self only, follows commands. Daughter is present at the bedside. Patient's daughter was oriented to the room, she denies needing anything at this time, call light in reach, bed alarm on.
[2019-12-01] MEDS: SODIUM CHLORIDE 0.9% 1000ML 1,000 ML IV SCH (18:34)
[2019-12-01] MEDS: CEFTRIAXONE SOD 1 GM/NS 50 ML 50 ML IV SCH (18:34)
[2019-12-01 20:00] VITALS: BP 146/71
[2019-12-01] MEDS: AZITHROMYCIN 500MG/NS 250 ML 250 ML IV SCH (20:00)
[2019-12-01 20:12] VITALS: BP 146/71
[2019-12-01] MEDS: HYDROCODONE/APAP 5MG-325MG TAB PO PRN (22:47)
[2019-12-02] VITALS (7 sets, daily range): BP systolic 134–165; BP diastolic 62–76
[2019-12-02] MEDS: HYDROCODONE/APAP 5MG-325MG TAB PO PRN ×2 (05:20→17:59)
[2019-12-02 06:12] LABS: BASOPHILS % 0.4 % (0.0-1.0); EOSINOPHILS % 0.4 % (0.0-6.0); HEMATOCRIT 37.9 % (34.2-44.1); HEMOGLOBIN 11.8 g/dL (12.0-16.0); LYMPHOCYTES # (AUTO) 1.2 (1.0-3.2); LYMPHOCYTES % 18.4 % (18.0-39.1); MEAN CORPUSCULAR HEMOGLOBIN 31.1 pg (28-32); MEAN CORPUSCULAR HGB CONC 31.1 g/dL (31-35); MEAN CORPUSCULAR VOLUME 99.7 fL (81-99); MONOCYTES # (AUTO) 0.7 (0.2-0.8); MONOCYTES % 10.7 % (4.4-11.3); NEUTROPHILS # (AUTO) 4.7 (2.1-6.9); NEUTROPHILS % 69.8 % (38.7-80.0); PLATELET COUNT 212 x10e3/uL (140-360); RED CELL DISTRIBUTION WIDTH 14.2 % (11.7-14.4)
[2019-12-02] MEDS ORDERED: POTASSIUM CHLO10 ME1 PO (06:18)
[2019-12-02] MEDS ORDERED: METOPROLOL SUCC50 MG PO (06:18)
[2019-12-02] MEDS ORDERED: GABAPENTIN400 MG PO (06:18)
[2019-12-02] MEDS ORDERED: ARIMIDEX1 MG PO (06:18)
[2019-12-02] MEDS ORDERED: AMLODIPINE BESYL5 MG PO (06:18)
[2019-12-02] MEDS ORDERED: ARICEPT5 MG PO (06:18)
[2019-12-02] MEDS ORDERED: ATORVASTATIN CA20 MG PO (06:18)
[2019-12-02] MEDS ORDERED: TOPIRAMATE25 MG PO (06:18)
[2019-12-02] MEDS ORDERED: BUPROPION HCL100 MG PO (06:18)
[2019-12-02 06:50] LABS: ALBUMIN 3.2 g/dL (3.5-5.0); ALBUMIN/GLOBULIN RATIO 1.2 (0.8-2.0); ANION GAP 15.5 mmol/L (8-16); CALCIUM 8.7 mg/dL (8.4-10.2); CREATININE, SERUM 1.11 mg/dL (0.57-1.11); POTASSIUM 3.5 mmol/L (3.5-5.1)
[2019-12-02] MEDS: SODIUM CHLORIDE 0.9% 1000ML 1,000 ML IV SCH ×2 (07:54→13:44)
[2019-12-02 07:55] LABS: CREATINE KINASE MB 0.1 ng/mL (0-5.0)
[2019-12-02] MEDS: ALPRAZOLAM 0.5 MG TAB PO PRN ×2 (08:53→17:59)
[2019-12-02] MEDS: METOPROLOL SUCCINATE 50 MG TAB XL PO SCH (10:39)
[2019-12-02] MEDS: AMLODIPINE BESYLATE 5 MG TAB PO SCH (10:39)
[2019-12-02 12:30] LABS: CLARITY,URINE CLEAR (CLEAR); COLOR,URINE YELLOW (YELLOW); KETONES,URINE 1+ (NEGATIVE); LEUKOCYTE ESTERASE ,URINE NEGATIVE (NEGATIVE); NITRITE,URINE NEGATIVE (NEGATIVE); PROTEIN,URINE DIPSTICK NEGATIVE (NEGATIVE)
[2019-12-02 12:31] LABS: BILIRUBIN,URINE NEGATIVE (NEGATIVE); URINE UROBILINOGEN 0.2 mg/dL (0.2 - 1)
[2019-12-02 12:40] LABS: BACTERIA,URINE RARE /HPF; EPITHELIAL CELLS,URINE FEW /LPF; RBC,URINE 0-5 /HPF (0-5); WBC,URINE (MAN) 0-5 /HPF (0-5)
[2019-12-02] MEDS ORDERED: ONDANSETRON HCL 4 MG ORAL DISINTEGRATING TAB PO PRN (13:30)
[2019-12-02] MEDS ORDERED: FLONASE ALLERG9.9 ML (13:47)
--- NOTE | 2019-12-02 14:20 | NUR ---
Marshall catheter inserted. pt tolerate well . Urin return.
[2019-12-02 15:43] LABS: CREATINE KINASE 45 IU/L (29-168)
[2019-12-02 16:05] LABS: CREATINE KINASE MB < 1.00 ng/mL (0-4.3)
[2019-12-02] MEDS: TOPIRAMATE 25 MG TAB PO SCH (17:25)
[2019-12-02] MEDS: CEFTRIAXONE SOD 1 GM/NS 50 ML 50 ML IV SCH (17:25)
[2019-12-02] MEDS: AZITHROMYCIN 500MG/NS 250 ML 250 ML IV SCH (17:25)
[2019-12-02] MEDS: FLUTICASONE PROPIONATE NASAL SPRAY NS SCH (17:25)
[2019-12-02] MEDS: BUPROPION HCL 100 MG TAB PO SCH (17:25)
--- NOTE | 2019-12-02 20:11 | History and Physical ---
PCP: Dr. Duglas Bernal at [facility]. CHIEF COMPLAINT: Altered mental status. HISTORY OF PRESENT ILLNESS: This is a 79-year-old female with past medical history of hypertension, breast cancer on remission 5 years, chronic back pain, and neuropathy, presented to the ER with complaints of increased altered mental status per daughter. Upon arrival, daughter reports that she was recently started on baclofen on and has been taking close to 7 pills so far when she noticed that she had been sleeping more often and had nightmares and anxiety. In the ER, she was a little more awake, but was not following commands. She had no focal weakness. CT brain was negative for acute intracranial abnormality. She denied any chest pain, shortness of breath, nausea, vomiting, fever, or chills. Urine toxicology was positive for opiates and benzos, which she has prescription for. Negative for ethanol. UA was unremarkable. She is admitted for further evaluation. PAST MEDICAL HISTORY: 1. Hypertension. 2. High cholesterol. 3. Chronic back pain. 4. Breast cancer. 5. Mood disorder. PAST SURGICAL HISTORY: 1. Hysterectomy. 2. Four knee replacements. 3. Bilateral mastectomy. 4. Back surgery. FAMILY MEDICAL HISTORY: Reports father of cancer and mother had open-heart surgery. SOCIAL HISTORY: She denies any tobacco, alcohol, or illicit drug use. ALLERGIES: NO KNOWN DRUG ALLERGIES. REVIEW OF SYSTEMS: Twelve systems reviewed and negative except ones reported in HPI. PHYSICAL EXAMINATION: VITAL SIGNS: Temperature 98.4, pulse is 62, respirations 18, blood pressure 152/67, and pulse ox is 99% on room air. GENERAL: Anxious and crying. HEENT: Normocephalic and atraumatic. NECK: Supple. LUNGS: Clear to auscultation. CARDIOVASCULAR: Regular rate and rhythm. GI: Soft and nontender. Obese. NEUROLOGIC: Alert, awake, and oriented x2-3. MUSCULOSKELETAL: Moves all extremities. SKIN: Dry. PSYCH: Depressed, anxious, and paranoid. LABORATORY DATA: WBC 6.51, hemoglobin 13.1, hematocrit 41.8, and platelets 246. Sodium 143, potassium 4.7, BUN 19, creatinine 1.41, now 1.11, and estimated GFR was 36, now 48. Lactic acid 1.5. AST 18 and 20, ALT 20. Ammonia 54. Troponin x3 negative. BNP 24.5. TSH 0.69. PT 13.3, INR 0.96, and APTT 26.9. Toxicology positive for opiates and benzodiazepine. UA; yellow and hazy, negative for UTI. COVID PCR is pending. Blood culture and urine culture are pending. IMAGING: CT brain, no acute process. Chest x-ray showed hazy opacification to the bilateral lung bases, which may represent atelectasis and/or aspiration given history of altered mental status. IMPRESSION AND PLAN: 1. Altered mental status, likely due to baclofen and acute kidney injury. CT brain was negative for acute process. Mentation is improving. 2. Acute kidney injury. Creatinine is 1.4. We will continue with IV fluids and encourage p.o. intake. We will repeat labs in a.m. 3. Hypertension. We will continue with metoprolol and Norvasc. 4. Questionable pneumonia. Chest x-ray noted atelectasis versus aspiration pneumonia. We will continue with Rocephin and azithromycin. 5. Acute psychosis with history of mood disorder and questionable dementia. We will resume home medication of Wellbutrin, Topamax, and Aricept. We will also give Xanax p.r.n. q.8. 6. Chronic back pain. We will treat as needed with gabapentin and hydrocodone p.r.n. 7. History of breast cancer. 8. Gastrointestinal and deep venous thrombosis prophylaxis. Heparin subcutaneous. Dictated by PATY Mariano Luis Fung MD MY/MODL /[id number]
[2019-12-02] MEDS: HEPARIN SOD (PORCINE) 5,000 UNIT/ML VIAL SC SCH (20:43)
[2019-12-02] MEDS ORDERED: DONEPEZIL HCL 5 MG TAB PO SCH (21:00)
[2019-12-02] MEDS ORDERED: ATORVASTATIN 20 MG TAB PO SCH (21:00)
[2019-12-03 01:56] VITALS: BP 129/61
[2019-12-03 05:11] VITALS: BP 137/66
[2019-12-03] MEDS: SODIUM CHLORIDE 0.9% 1000ML 1,000 ML IV SCH ×2 (05:52→08:14)
[2019-12-03 08:08] VITALS: BP 139/61
[2019-12-03] MEDS: FLUTICASONE PROPIONATE NASAL SPRAY NS SCH (08:14)
[2019-12-03] MEDS: AMLODIPINE BESYLATE 5 MG TAB PO SCH (08:15)
[2019-12-03] MEDS: TOPIRAMATE 25 MG TAB PO SCH (08:18)
[2019-12-03] MEDS: BUPROPION HCL 100 MG TAB PO SCH (08:19)
[2019-12-03] MEDS: METOPROLOL SUCCINATE 50 MG TAB XL PO SCH (08:19)
[2019-12-03] MEDS: HEPARIN SOD (PORCINE) 5,000 UNIT/ML VIAL SC SCH (08:22)
[2019-12-03] MEDS: HYDROCODONE/APAP 5MG-325MG TAB PO PRN (08:29)
[2019-12-03] MEDS ORDERED: GABAPENTIN 400 MG CAP PO SCH (09:00)
[2019-12-03] MEDS ORDERED: POTASSIUM CHLORIDE 10MEQ EA PO SCH (09:00)
[2019-12-03 09:50] VITALS: BP 139/61
[2019-12-03 11:30] VITALS: BP 137/63
--- NOTE | 2019-12-03 14:37 | NUR ---
IMM letter delivered and discussed with pt and pt's daughter Chiquita Monge at bedside. They verbalized understanding, states no objection to discharge today. Pt asked her daughter to sign. Copy given to daughter. Signed copy placed in chart.
--- NOTE | 2019-12-03 15:06 | NUR ---
WOUND CARE CONSULT 79 YO FEMALE HX OF ALTERED MENTAL STATUS,DEHYDRATION,RENAL INSUFF CYNTHIA 16 0N MODERATE PUP STATUS AND INTERVENTIONS VISCO MATTRESS LABS: WBC- 6.73 HGB- 11.8 GLUCOSE-86 HEAD TO TOE SKIN ASSESSMENT COMPLETE PATIENT PRESENTS WITH DENUDED ABDOMINAL FOLD PARTIAL THICKNESS MOISTURE RELATED RECOMMENDATIONS: NURSING TO CONTINUE TO MONITOR PATIENT AND KEEP SKIN CLEAN AND FREE FROM LOOSE STOOL OR IRRITATING MOISTURE AND CONTINUE TO FOLLOW CONSERVATIVE / MODERATE / STRICT PUP STATUS INTERVENTIONS NURSING TO CONTINUE TO GET PATIENT OUT OF BED FOR MEALS AND MUCH TOLERATED NURSING TO CLEAN DENUDED ABDOMINAL FOLD PARTIAL THICKNESS WOUND WITH NORMAL SALINE DAILY AND APPLY REMEDY ANTIFUNGAL CREAM AND PLACE SOFT ABSORBANT PAD BETWEEN SKIN FOLD Addendum: 12/03/19 at 1513 by Garett Luis RN Amended: Links added.
--- NOTE | 2019-12-03 15:09 | NUR ---
Rolando Moreno @ 1000am . Pt urinate @ 1100 .
--- NOTE | 2019-12-04 03:08 | Discharge Summary ---
PRIMARY CARE PHYSICIAN: Dr. Duglas Bernal at [facility]. FINAL DISCHARGE DIAGNOSES: 1. Altered mental status likely due to baclofen use. 2. Acute kidney injury. 3. Hypertension. 4. Acute psychosis with a history of mood disorder. 5. Chronic back pain. 6. History of breast cancer. CONSULTANTS: None. PROCEDURES: None. HISTORY: Per HPI. HOSPITAL COURSE: This is a 79-year-old female, who presented to the ER with complaints of acute mental status change with anxiety and acute psychosis after started taking baclofen for the past three days. She according to family was having nightmares and was hallucinating and anxious. Upon arrival she was dehydrated with creatinine of 1.41. CT brain was unremarkable for acute changes. Chest x-ray showed atelectases. She was started on IV fluids and continued to improve. She had an episode of urinary retention, a Marshall catheter was inserted and removed this morning. She is voiding without any difficulties. This morning she is alert, awake, and oriented x3, she does not remember what happened in the past few days. She is answering appropriately, eating and walking to the bathroom with a walker by herself. Her function has improved. Troponin x3 were negative. She is advised to stop taking baclofen and follow up with her PCP or her orthopedics regarding other pain medications if Solon is not sufficient. PHYSICAL EXAMINATION: VITAL SIGNS: Temperature is 98.0, pulse is 64, respirations 18, blood pressure 137/63, pulse ox is 100% on room air. GENERAL: In no acute distress. HEENT: Normocephalic, atraumatic. NECK: Supple. LUNGS: Clear to auscultation. CARDIOVASCULAR: Regular rate and rhythm. GI: Soft and nontender. NEUROLOGIC: Alert, awake, and oriented x3 MUSCULOSKELETAL: Moves all extremities. SKIN: Dry. PSYCH: Calm. CONDITION AT DISCHARGE: Improved and stable. DISCHARGE MEDICATIONS: Please see medication reconciliation. I have emphasized the need to stop taking baclofen, both daughter and patient verbalized understanding. FOLLOWUP: Followup with PCP and Orthopedics in 1 to 2 weeks. TIME SPENT: Total discharge time is 32 minutes. Dictated by PATY Mariano Luis Fung MD MY/MODL /[id number] cc: Duglas Bernal MD
== END 2019-12-03 15:16 | disposition home or self-care (01) | DRG 682 ==
LOC: ER 14:38 → ERHOLD 17:15 → MED/SURG2 17:55
PROVIDERS: ADMIT Internal Medicine; ATTEND Internal Medicine
DX: N17.9 Acute kidney failure, unspecified (principal); J18.9 Pneumonia, unspecified organism; F23 Brief psychotic disorder; I10 Essential (primary) hypertension; T42.8X5A Adverse effect of antiparkinsonism drugs and other central muscle-tone depressants, initial encounter; F39 Unspecified mood [affective] disorder; G89.29 Other chronic pain; Z85.3 Personal history of malignant neoplasm of breast; E86.0 Dehydration; Z11.59 Encounter for screening for other viral diseases
CPT/HCPCS: 36415; 70450; 71045; 80053; 80307; 80320; 80329; 81001; 82140; 82550; 82553; 83605; 83735; 83880; 84443; 84484; 85025; 85610; 85730; 87040; 87086; 93005; 99251; 99285; J0456; J0696; J1644; J7030